=== PATIENT | female | born 1955 | race Hispanic/Latino ===

== ENCOUNTER 2018-02-12 02:12 | Emergency (ER) | payer MEDICARE ==
[2018-02-12 02:12] VITALS: BMI 22.1
[2018-02-12 02:24] VITALS: RESP 16; TEMP 97.7; O2SAT 99
[2018-02-12] MEDS ORDERED: Sodium Chloride 0.9% 1,000 ML IV STA (02:36)
[2018-02-12] MEDS ORDERED: Morphine 4 mg/ml ISec IVP STA ×2 (02:40→04:14)
--- NOTE | 2018-02-12 02:46 | ED PDOC ---
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 Patient reports blood in urine 2 weeks ago that resolved. Patient reports similar symptoms in the past when she had kidney stones. Patient denies any fevers, chills, chest pain, shortness of breath, abdominal pain, nausea, vomiting, diarrhea, neck pain , urinary symptoms, headache, dizziness, or any other complaint. PMD: Dr. Vitale Time/Duration: > week (1-2 weeks) Symptom Onset: Gradual Symptom Course: Intermittent Activities at Onset: Light Context: Home Past Medical History - Provider Review Nursing Documentation Reviewed: Yes - Infectious Disease Hx of Infectious Diseases: None - Tetanus Immunization Tetanus Immunization: Unknown - Cardiac Hx Cardiac Disorders: Yes Hx Hypertension: Yes - Pulmonary Hx Respiratory Disorders: Yes Hx Pneumonia: Yes - Neurological Hx Neurological Disorder: Yes Hx Migraine: Yes - HEENT Hx HEENT Disorder: No - Renal Hx Renal Disorder: No - Endocrine/Metabolic Hx Endocrine Disorders: Yes Hx Systemic Lupus Erythematosus: Yes - Hematological/Oncological Hx Blood Disorders: Yes Hx Cancer: Yes - Integumentary Hx Dermatological Disorder: No - Musculoskeletal/Rheumatological Hx Musculoskeletal Disorders: Yes Hx Herniated Disk: Yes - Gastrointestinal Hx Gastrointestinal Disorders: Yes Hx Pancreatitis: Yes - Genitourinary/Gynecological Hx Genitourinary Disorders: No - Psychiatric Hx Psychophysiologic Disorder: No Hx Substance Use: No - Surgical History Hx Appendectomy: Yes Hx Mastectomy: Yes - Anesthesia Hx Anesthesia: Yes Hx Anesthesia Reactions: No Hx Malignant Hyperthermia: No - Suicidal Assessment Feels Threatened In Home Enviroment: No Family/Social History - Physician Review Nursing Documentation Reviewed: Yes Family/Social History: No Known Family HX Smoking Status: Light Smoker < 10 Cigarettes Daily Hx Alcohol Use: No Hx Substance Use: No Hx Substance Use Treatment: No Allergies/Home Meds Allergies/Adverse Reactions: Allergies hydromorphone HCl [From Dilaudid] Allergy (Mild, Verified 11/27/15 19:02) DIZZINESS erythromycin base Allergy (Verified 11/27/15 12:49) DIARRHEA tetanus and diphtheria toxoids [tetanus & diphtheria toxoids] Allergy (Verified 11/27/15 12:49) SWELLING Home Medications: Home Meds Medication Instructions Recorded Confirmed Topiramate [Topamax] 100 mg PO BID 07/17/15 02/17/16 Butalbit/Acetamin/Caff/Codeine 1 cap PO Q4 PRN 11/27/15 02/17/16 [Fioricet-Cod 89-179-98-30 Cap] DULoxetine [Cymbalta] 60 mg PO DAILY 11/27/15 02/17/16 Esomeprazole Magnesium [Nexium 40 mg PO DAILY 11/27/15 02/17/16 24Hr] Review of Systems - Physician Review All systems were reviewed & negative as marked: Yes - Review of Systems Constitutional: absent: Fevers, Other (Chills) Respiratory: absent: SOB Cardiovascular: absent: Chest Pain Gastrointestinal: Other (Left flank pain). absent: Abdominal Pain, Diarrhea, Nausea, Vomiting Genitourinary Female: absent: Dysuria, Frequency, Hematuria Musculoskeletal: Back Pain (left lower back pain). absent: Neck Pain Neurological: absent: Headache, Dizziness Physical Exam Vital Signs Reviewed: Yes Vital Signs Temp Pulse Resp BP Pulse Ox 02/12/18 02:18 97.7 F 95 H 16 169/109 H 99 Temperature: Afebrile Blood Pressure: Hypertensive Pulse: Regular Respiratory Rate: Normal Appearance: Positive for: Well-Appearing, Non-Toxic, Comfortable Pain Distress: None Mental Status: Positive for: Alert and Oriented X 3 - Systems Exam Head: Present: Atraumatic, Normocephalic Pupils: Present: PERRL Extroacular Muscles: Present: EOMI Conjunctiva: Present: Normal Mouth: Present: Moist Mucous Membranes Neck: Present: Normal Range of Motion Respiratory/Chest: Present: Clear to Auscultation, Good Air Exchange. No: Respiratory Distress, Accessory Muscle Use Cardiovascular: Present: Regular Rate and Rhythm, Normal S1, S2. No: Murmurs Abdomen: No: Tenderness, Distention, Peritoneal Signs Back: Present: CVA Tenderness (Left ) Upper Extremity: Present: Normal Inspection. No: Cyanosis, Edema Lower Extremity: Present: Normal Inspection. No: Edema Neurological: Present: GCS=15, CN II-XII Intact, Speech Normal Skin: Present: Warm, Dry, Normal Color. No: Rashes Psychiatric: Present: Alert, Oriented x 3, Normal Insight, Normal Concentration Medical Decision Making ED Course and Treatment: 02/12/18 02:33 Impression: 62 year old female presents complaining of intermittent left flank pain radiating to the left lower back for the past 1-2 weeks. Patient reports hematuria 2 weeks ago that resolved. Differential Diagnosis included but are not limited to: Kidney stone VS Musculoskeletal Plan: -- CT Abd & Pelvis w/o PO or IV Contrast -- Labs -- Morphine, IV Fluids, Toradol, Zofran Inj -- Urinalysis -- Reassess and disposition Progress Notes: EXAM: CT Abdomen and Pelvis Without Intravenous Contrast Dictated and Authenticated by: Iron Hampton MD 02/12/2018 4:02 AM IMPRESSION: 1. LEFT distal ureteral calculus with mild hydroureteronephrosis. 2. Liver lesion. For patients with low to average risk of malignancy, no further follow-up is necessary. For patients with high risk of malignancy (known malignancy that can metastasize or other risk factors), recommend follow-up abdominal CT or MR in 6 months. 3. Pulmonary nodules. For low-risk patients recommend follow-up chest CT at 3-6 months. If unchanged consider an additional follow-up CT at 18-24 months. For high-risk patients (smoking history or other known risk factors) initial follow-up chest CT at 3-6 months and if unchanged, 18-24 months. 4. Incidental/non-acute findings are described above. 02/12/18 04:[address] finding in detail of kidney stone findings as well as also liver and pulmonary findings. Patient's pain has been controlled. Also discussed with patient to not to take flexeril and percocet together. Patient in agreement with plan to be discharged home. Patient is stable for discharge. Patient was instructed to follow up with Dr. Irwin, or return if symptoms worsen or new concerning symptoms arise. Discussed case with Dr. Irwin who agrees to f/u as outpatient care. - Lab Interpretations Lab Results: 02/12/18 02:35 02/12/18 02:35 Lab Results 02/12/18 04:00: Urine Color Yellow, Urine Appearance Clear, Urine pH 6.5, Ur Specific [place] <= 1.005, Urine Protein Negative, Urine Glucose (UA) Negative, Urine Ketones Negative, Urine Blood Negative, Urine Nitrate Negative, Urine Bilirubin Negative, Urine Urobilinogen 0.2, Ur Leukocyte Esterase Negative 02/12/18 02:35: Sodium 145, Potassium 4.1, Chloride 108 H, Carbon Dioxide 24, Anion Gap 17, BUN 22 H, Creatinine 0.8, Est GFR ( Amer) > 60, Est GFR ( Non-Af Amer) > 60, Random Glucose 100, Calcium 8.7, Total Bilirubin 0.2, AST 46 H, ALT 26, Alkaline Phosphatase 56, Total Protein 6.8, Albumin 4.1, Globulin 2.7 , Albumin/Globulin Ratio 1.5 02/12/18 02:35: WBC 7.2, RBC 3.84, Hgb 12.9, Hct 38.4, MCV 100.0, MCH 33.6, MCHC 33.6, RDW 13.1, Plt Count 219, MPV 9.5, Gran % 54.1, Lymph % (Auto) 34.8, [place] % (Auto) 6.9 H, Eos % (Auto) 3.9, Baso % (Auto) 0.3, Gran # 3.90, Lymph # ( Auto) 2.5, [place] # (Auto) 0.5, Eos # (Auto) 0.3, Baso # (Auto) 0.02 I have reviewed the lab results: Yes - RAD Interpretation Radiology Orders: 02/12/18 02:36 ABD & PELVIS W/O PO OR IV CONT [CT] Stat - Medication Orders Current Medication Orders: Sodium Chloride (Sodium Chloride 0.9%) 1,000 mls @ 100 mls/hr IV .Q10H STA Stop: 02/12/18 12:35 Last Admin: 02/12/18 02:43 Dose: 100 mls/hr eMAR Start Stop Document 02/12/18 02:43 JOL (Rec: 02/12/18 02:57 [facility] [id number] Intravenous Solution Start Date 02/12/18 Start Time 02:43 Discontinued Medications Ketorolac Tromethamine (Toradol) 30 mg IVP STAT STA Stop: 02/12/18 02:37 Last Admin: 02/12/18 02:43 Dose: 30 mg MAR Pain Assessment Document 02/12/18 02:43 JOL (Rec: 02/12/18 02:55 [id number] Pain Reassessment Is this a pain reassessment? No Sleep Is patient sleeping during reassessment? No Presence of Pain Presence of Pain Yes Pain Scale Used Pain Scale Used Numeric Location Left, Right or Bilateral Bilateral Upper or Lower Lower Pain Location Body Site Back Description Intensity of Pain at present 10 Pain Behavior Withdrawal from Touch Grasping Site Restlessness Facial Grimacing Aggravating Factors ADL's Changing Position IVP Administration Document 02/12/18 02:43 JOL (Rec: 02/12/18 02:55 [id number] Charges for Administration # of IVP Administrations 1 Morphine Sulfate (Morphine) 4 mg IVP STAT STA Stop: 02/12/18 02:41 Last Admin: 02/12/18 02:43 Dose: 4 mg [facility] [place] Pain Assessment Document 02/12/18 02:43 JOL (Rec: 02/12/18 02:56 [id number] Pain Reassessment Is this a pain reassessment? No Sleep Is patient sleeping during reassessment? No Presence of Pain Presence of Pain Yes Pain Scale Used Pain Scale Used Numeric Location Left, Right or Bilateral Bilateral Upper or Lower Lower Pain Location Body Site Back Description Intensity of Pain at present 10 Pain Behavior Guarding Withdrawal from Touch Grasping Site Restlessness Facial Grimacing Aggravating Factors ADL's Changing Position IVP Administration Document 02/12/18 02:43 JOL (Rec: 02/12/18 02:56 [id number] Charges for Administration # of IVP Administrations 1 Morphine Sulfate (Morphine) 4 mg IVP STAT STA Stop: 02/12/18 04:15 Last Admin: 02/12/18 04:25 Dose: 4 mg [facility] [place] Pain Assessment Document 02/12/18 04:25 JOL (Rec: 02/12/18 04:25 JOL [facility] [id number]) Pain Reassessment Is this a pain reassessment? No Sleep Is patient sleeping during reassessment? No Presence of Pain Presence of Pain Yes Pain Scale Used Pain Scale Used Numeric Description Intensity of Pain at present 8 IVP Administration Document 02/12/18 04:25 JOL (Rec: 02/12/18 04:25 JOL [facility] [id number]) Charges for Administration # of IVP Administrations 1 Ondansetron HCl (Zofran Inj) 4 mg IVP STAT STA Stop: 02/12/18 02:37 Last Admin: 02/12/18 02:43 Dose: 4 mg IVP Administration Document 02/12/18 02:43 JOL (Rec: 02/12/18 02:56 [id number] Charges for Administration # of IVP Administrations 1 Tamsulosin HCl (Flomax) 0.4 mg PO STAT STA Stop: 02/12/18 04:15 Last Admin: 02/12/18 04:25 Dose: 0.4 mg - Scribe Statement The provider has reviewed the documentation as recorded by the Vivian Craig Provider Scribe Attestation: All medical record entries made by the Scribe were at my direction and personally dictated by me. I have reviewed the chart and agree that the record accurately reflects my personal performance of the history, physical exam, medical decision making, and the department course for this patient. I have also personally directed, reviewed, and agree with the discharge instructions and disposition. Disposition/Present on Arrival - Present on Arrival Any Indicators Present on Arrival: Yes History of DVT/PE: Yes History of Uncontrolled Diabetes: Yes Urinary Catheter: Yes History of Decub. Ulcer: No History Surgical Site Infection Following: None - Disposition Have Diagnosis and Disposition been Completed?: Yes Diagnosis: Kidney stone Disposition: HOME/ ROUTINE Disposition Time: 04:45 Patient Plan: Discharge Patient Problems: Current Active Problems Problem Status Onset Kidney stone Acute Condition: IMPROVED Discharge Instructions (ExitCare): Kidney Stones in Adults Additional Instructions: Ms Wolfe, thank you for letting us take care of you today. Your provider was Dr. Jesus. You were treated for Kidney Stone. The emergency medical care you received today was directed at your acute symptoms. If you were prescribed any medication, please fill it and take as directed. It may take several days for your symptoms to resolve. Return to the Emergency Department if your symptoms worsen, do not improve, or if you have any other problems. Please contact your doctor or call one of the physicians/clinics you have been referred to that are listed on the Patient Visit Information form that is included in your discharge packet. Bring any paperwork you were given at discharge with you along with any medications you are taking to your follow up visit. Our treatment cannot replace ongoing medical care by a primary care provider (PCP) outside of the emergency department. Thank you for allowing the [facility] team to be part of your care today. If you had an X-Ray or CT scan: A Radiologist will review the ED reading if any change in treatment is needed we will contact you. If you had a blood, urine, or wound culture: It will take several days for the results, if any change in treatment is needed we will contact you. If you had an STI test: It will take 48 hours for the results. Please call after 1 week if you have not heard back. Prescriptions: Cyclobenzaprine [Flexeril] 5 mg PO TID PRN #20 tab PRN Reason: Muscle Spasm oxyCODONE/Acetaminophen [Percocet 5/325 mg Tab] 1 ea PO Q6 PRN #20 tab PRN Reason: Pain, Moderate (4-7) Tamsulosin [Flomax] 0.4 mg PO DAILY #20 cap Referrals: Lisa Vitale MD [Primary Care Provider] - Follow up with primary Abelino Irwin MD [Staff Provider] - Follow up with primary Forms: DearJane ([place]), WORK NOTE
[2018-02-12 02:52] LABS: BASO # 0.02 K/mm3 (0.0-2.0); BASO % 0.3 % (0.0-3.0); EOS # 0.3 (0.0-0.7); EOS % 3.9 % (1.5-5.0); GRAN # 3.9 (1.4-6.5); GRAN % 54.1 % (50.0-68.0); HEMOGLOBIN 12.9 g/dL (12.0-16.0); LYMPH # 2.5 (1.2-3.4); LYMPH % 34.8 % (22.0-35.0); MEAN CORPUSCULAR HEMOGLOBIN 33.6 pg (25.0-35.0); MEAN CORPUSCULAR HGB CONC 33.6 g/dl (31.0-37.0); MEAN PLATELET VOLUME 9.5 fl (7.0-11.0); MONO # 0.5 (0.1-0.6); MONO % 6.9 % (1.0-6.0); RBC 3.84 10^6/uL (3.5-6.1); RED CELL DISTRIBUTION WIDTH 13.1 % (11.5-14.5); WHITE BLOOD COUNT 7.2 10^3/ul (4.5-11.0)
[2018-02-12 03:04] LABS: ALB/GLOB RATIO 1.5 (1.1-1.8); ALBUMIN 4.1 g/dL (3.0-4.8); ALT/SGPT 26 U/L (7-56); AST/SGOT 46 U/L (14-36); BLOOD UREA NITROGEN 22 mg/dL (7-21); CALCIUM 8.7 mg/dL (8.4-10.5); GFR AFRICAN-AMERICAN > 60; GFR NON-AFRICAN AMERICAN > 60
--- NOTE | 2018-02-12 04:03 | CT ---
EXAM: CT Abdomen and Pelvis Without Intravenous Contrast CLINICAL HISTORY: 62 years old, female; Pain; Abdominal pain; Flank; Left; Additional info: Left flank pain R/O kidney stone TECHNIQUE: Axial computed tomography images of the abdomen and pelvis without intravenous contrast. All CT scans at this facility use one or more dose reduction techniques, viz.: automated exposure control; ma/kV adjustment per patient size (including targeted exams where dose is matched to indication; i.e. head); or iterative reconstruction technique. Coronal and sagittal reformatted images were created and reviewed. COMPARISON: No relevant prior studies available. FINDINGS: Limitations: Lack of intravenous contrast. Lung bases: Mild centrilobular emphysematous changes. Few subpleural nodules and/or scarring, up to 0.8 cm. ABDOMEN: Liver: < 0.5 cm lesion. Gallbladder and bile ducts: No calcified stones. No ductal dilation. Pancreas: Unremarkable. No ductal dilation. Spleen: No splenomegaly. Adrenals: No mass. Kidneys and ureters: Mild stranding about LEFT kidney. Duplicated renal collecting systems. Mild pelvocaliectasis of LEFT kidney. Mildly dilated LEFT ureter. 0.2 x 0.2 x 0.2 cm calculus at/near LEFT ureterovesical junction. Stomach and bowel: Scattered diverticula within colon. No associated inflammatory stranding. Probable underdistention of LEFT colon. No definite mural thickening. No obstruction. PELVIS: Appendix: No findings to suggest acute appendicitis. Bladder: Unremarkable. No stones. Reproductive: Unremarkable as visualized. ABDOMEN and PELVIS: Intraperitoneal space: No significant fluid collection. No free air. Bones/joints: Degenerative changes of lower thoracic and lower lumbar spine. No acute fracture. Soft tissues: Tiny umbilical hernia containing fat. Vasculature: [id number] atherosclerotic disease. No aneurysm. Lymph nodes: No pathologically enlarged lymph nodes. IMPRESSION: 1. LEFT distal ureteral calculus with mild hydroureteronephrosis. 2. Liver lesion. For patients with low to average risk of malignancy, no further follow-up is necessary. For patients with high risk of malignancy (known malignancy that can metastasize or other risk factors), recommend follow-up abdominal CT or MR in 6 months. 3. Pulmonary nodules. For low-risk patients recommend follow-up chest CT at 3-6 months. If unchanged consider an additional follow-up CT at 18-24 months. For high-risk patients (smoking history or other known risk factors) initial follow-up chest CT at 3-6 months and if unchanged, 18-24 months. 4. Incidental/non-acute findings are described above.
[2018-02-12 04:11] LABS: PH,URINE 6.5 (4.7-8.0); URINE BILIRUBIN NEGATIVE (NEGATIVE); URINE BLOOD NEGATIVE (NEGATIVE); URINE GLUCOSE (UA) NEGATIVE (NEGATIVE); URINE LEUKOCYTE ESTERASE NEGATIVE Leu/uL (NEGATIVE); URINE PROTEIN NEGATIVE mg/dL (<30 mg/dL); URINE UROBILINOGEN 0.2 E.U./dL (<1 E.U./dL)
[2018-02-12 04:21] LABS: URINE APPEARANCE CLEAR (CLEAR); URINE COLOR YELLOW (YELLOW)
[2018-02-12 05:26] VITALS: BP 156/93; PULSE 88
--- NOTE | 2018-02-12 08:54 | CP.PCM.PCO ---
Physician Communication Note - Physician Communication Note Physician Communication Note: Code Sepsis f/u note not completed as patient was discharged home from ED.
== END 2018-02-12 05:00 | disposition home or self-care (01) ==
LOC: ED 02:12
DX: N20.0 Calculus of kidney (principal); I10 Essential (primary) hypertension; M32.9 Systemic lupus erythematosus, unspecified; F17.210 Nicotine dependence, cigarettes, uncomplicated
CPT/HCPCS: 74176; 80053; 81003; 85025; 96374; 96375; 96376; 99284; J1885; J2270; J2405; J7030